=== PATIENT | female | born 1960 | race Caucasian/White ===

== ENCOUNTER 2020-03-13 12:42 | Emergency (ER) | payer MEDICARE ==
--- NOTE | 2020-03-13 13:13 | EDM.PDOC ---
ED HPI GENERAL MEDICAL PROBLEM - General Chief Complaint: Chest Pain Stated Complaint: MEDICAL Time Seen by Provider: 03/13/20 12:45 Source of Information: Reports: Patient, EMS - History of Present Illness INITIAL COMMENTS - FREE TEXT/NARRATIVE: 59-year-old female arrives by ambulance after being briefly assessed in the clinic in [facility] for chest pain. She has no previous cardiac history. Last evening while in bed she developed significant heartburn, chest and neck discomfort, diaphoresis, and left arm pain that lasted several hours. Antacids did not seem to help much. When the pain recurred this morning, she decided to go in and get checked at the clinic. She was given full dose aspirin and an EKG was done which looked normal. 2 nitroglycerin were given which seemed to help and EMS was called. In route she still had some pain, 1 additional nitroglycerin was given by EMS and she arrived to the emergency room pain-free. No shortness of breath or nausea. She did develop diaphoresis this morning with symptoms. She is a smoker and is unsure of her cholesterol levels. Location: Reports: Chest Quality: Reports: Pressure, Stabbing Severity: Moderate Improves with: Reports: Other (Nitroglycerin and aspirin seem to be helpful this morning) Context: Reports: Other (Occurred at rest) Associated Symptoms: Reports: Chest Pain, Diaphoresis, Malaise, Shortness of Breath. Denies: Cough, Fever/Chills, Headaches, Nausea/Vomiting, Weakness - Related Data Allergies Allergy/AdvReac Type Severity Reaction Status Date / Time Penicillins Allergy Rash Verified 03/13/20 12:51 Home Meds: Home Meds NK [No Known Home Meds] 03/13/20 [History] Past Medical History Musculoskeletal History: Reports: Fibromyalgia, Osteoarthritis Psychiatric History: Reports: Depression - Infectious Disease History Infectious Disease History: Reports: Chicken Pox - Past Surgical History GI Surgical History: Reports: Cholecystectomy, Hernia Repair/Other, Other (See Below) Other GI Surgeries/Procedures: gastric bypass 2007 Female Surgical History: Reports: Hysterectomy Musculoskeletal Surgical History: Reports: Knee Replacement, Other (See Below) Other Musculoskeletal Surgeries/Procedures:: feet surgery Social & Family History - Tobacco Use Tobacco Use Status *Q: Current Every Day Tobacco User Years of Tobacco use: 45 Packs/Tins Daily: 0.5 - Caffeine Use Caffeine Use: Reports: Coffee - Recreational Drug Use Recreational Drug Use: No ED ROS GENERAL - Review of Systems Review Of Systems: See Below Constitutional: Reports: Malaise. Denies: Fever, Chills HEENT: Reports: No Symptoms Respiratory: Reports: Shortness of Breath Cardiovascular: Reports: Chest Pain. Denies: Palpitations GI/Abdominal: Denies: Abdominal Pain, Nausea, Vomiting : Reports: No Symptoms Musculoskeletal: Reports: Other (Bilateral arm pain, left worse than right) Skin: Reports: Diaphoresis Neurological: Reports: No Symptoms Psychiatric: Reports: No Symptoms ED EXAM, GENERAL - Physical Exam Exam: See Below Exam Limited By: No Limitations General Appearance: Alert, No Apparent Distress Eye Exam: Bilateral Eye: Normal Inspection Head: Atraumatic Neck: Supple, Non-Tender Respiratory/Chest: Lungs Clear, Other (I cannot reproduce any chest wall pain with palpation) Cardiovascular: Regular Rate, Rhythm. No: Extra Beats GI/Abdominal: Normal Bowel Sounds, Soft, Non-Tender Extremities: Normal Inspection. No: Pedal Edema Neurological: Alert, Oriented Skin Exam: Warm, Dry Course - Vital Signs Last Recorded V/S: Last Vital Signs Temp 95.9 F L 03/13/20 12:43 Pulse 83 03/13/20 15:58 Resp 12 03/13/20 14:34 BP 151/99 H 03/13/20 15:58 Pulse Ox 98 03/13/20 14:34 - Orders/Labs/Meds Orders: Active Orders 24 hr Category Date Time Status EKG 12 Lead [EK] Routine Ther 03/13/20 13:38 Ordered Labs: Laboratory Tests 03/13/20 03/13/20 03/13/20 Range/Units 13:10 13:10 15:03 WBC 7.2 (4.5-11.0) K/uL RBC 4.33 (3.30-5.50) M/uL Hgb 13.4 (12.0-15.0) g/dL Hct 40.1 (36.0-48.0) % MCV 93 (80-98) fL MCH 31 (27-31) pg MCHC 33 (32-36) % Plt Count 228 (150-400) K/uL Neut % (Auto) 71 H (36-66) % Lymph % (Auto) 22 L (24-44) % [place] % (Auto) 6 (2-6) % Eos % (Auto) 1 L (2-4) % Baso % (Auto) 0 (0-1) % Sodium 136 L (140-148) mmol/L Potassium 4.2 (3.6-5.2) mmol/L Chloride 101 (100-108) mmol/L Carbon Dioxide 26 (21-32) mmol/L Anion Gap 13.2 (5.0-14.0) mmol/L BUN 11 (7-18) mg/dL Creatinine 1.2 H (0.6-1.0) mg/dL Est Cr Clr Drug Dosing 43.59 mL/min Estimated GFR (MDRD) 46 L (>60) Glucose 114 H (74-106) mg/dL Calcium 9.0 (8.5-10.1) mg/dL Total Bilirubin 0.3 (0.2-1.0) mg/dL AST 25 (15-37) U/L ALT 39 (12-78) U/L Alkaline Phosphatase 109 (46-116) U/L Troponin I 0.017 0.036 (0.000-0.056) ng/mL Total Protein 6.2 L (6.4-8.2) g/dL Albumin 3.5 (3.4-5.0) g/dL Globulin 2.7 (2.3-3.5) g/dL Albumin/Globulin Ratio 1.3 (1.2-2.2) Meds: Medications Discontinued Medications Generic Name Dose Route Start Last Admin Trade Name Freq PRN Reason Stop Dose Admin Heparin Sodium (Porcine) 4,000 units 03/13/20 15:52 03/13/20 15:58 Heparin Sodium IVPUSH 03/13/20 15:53 4,000 units ONETIME ONE Administration Heparin Sodium/Dextrose 25,000 units in 500 mls @ 16 mls/hr 03/13/20 16:00 03/13/20 15:58 Heparin 25,000 Units In D5w 500 Ml IV 800 units/hr TITRATE LADONNA 16 mls/hr Administration Protocol 800 UNITS/HR Metoprolol Tartrate 25 mg 03/13/20 15:52 03/13/20 15:58 Lopressor PO 03/13/20 15:53 25 mg ONETIME ONE Administration - Re-Assessments/Exams Free Text/Narrative Re-Assessment/Exam: 03/13/20 13:21 EKG done by EMS in route shows no significant ST changes. CBC, CMP and troponin are drawn, and patient will inform us if she redevelops pain. 03/13/20 14:21 The patient redeveloped some vague symptoms in her left arm, EKG was repeated and is normal and troponin return 0.017 which is within normal range. She will be held here in the emergency room for another 1-1/2 hours and a troponin rechecked. 03/13/20 16:26 Troponin is now 0.036. She did not redevelop symptoms but I do believe an acute coronary syndrome is evolving. Heparin bolus of 4000 units and 800 units an hour drip was started as well as 25 mg of oral metoprolol. Dr. Ac accepted the patient for transfer for more cardiology evaluation and treatment. She was transferred to [facility] in [place]. Departure - Departure Time of Disposition: 16:25 Disposition: DC/Tfer to [facility] 02 Clinical Impression: Acute coronary syndrome - Discharge Information Referrals: PCP,None [Ordering Only Provider] - Forms: ED Department Discharge Care Plan Goals: Patient is to be transferred to [facility] in [place] for cardiology evaluation and further evaluation. Sepsis Event Note (ED) - Evaluation Sepsis Screening Result: No Definite Risk - Focused Exam Vital Signs: Vital Signs Temp Pulse Pulse Resp BP BP Pulse Ox 03/13/20 15:58 83 151/99 H 03/13/20 14:34 98 12 136/106 H 98 03/13/20 13:33 91 10 L 142/100 H 100 03/13/20 12:43 95.9 F L 72 18 131/93 H 100 - My Orders Last 24 Hours: My Active Orders 03/13/20 13:38 EKG 12 Lead [EK] Routine - Assessment/Plan Last 24 Hours: My Active Orders 03/13/20 13:38 EKG 12 Lead [EK] Routine
[2020-03-13] MEDS ORDERED: Heparin Sodium 5,000 Units/ML Vial IVPUSH ONE (15:52)
[2020-03-13] MEDS ORDERED: Metoprolol Tartrate 25 MG Tab PO ONE (15:52)
[2020-03-13] MEDS ORDERED: Heparin Sodium/D5W 25,000 UNITS/500 ML BAG IV SCH (16:00)
== END 2020-03-13 17:05 ==
LOC: JP.ED 12:42
DX: I24.9 Acute ischemic heart disease, unspecified (principal); F17.210 Nicotine dependence, cigarettes, uncomplicated; Z88.0 Allergy status to penicillin
CPT/HCPCS: 36415; 80053; 84484; 85025; 93005; 93010; 96365; 99285; A9270; J1644